=== PATIENT | female | born 1975 | race African-American/Black ===

== ENCOUNTER 2018-04-10 21:45 | Inpatient (IN) | payer MEDICARE, MEDICAID ==
[~2018-04-10] VITALS: Ht 167.6 cm; Wt 108.9 kg
[~2018-04-10 21:45] MED LIST: AMLO10TA80 PO; ATROPINE SULFATE 1MG/10ML SYR ONE; CALCIUM CHLORIDE 1GM/10ML SYR IV ONE; DEXTROSE 50% WATER 50ML SYRINGE IV ONE; EPINEPHRINE 0.1MG/ML (1:10,000) 10ML SYR ONE; ETOMIDATE 2MG/ML 10ML VIAL IV ONE; FLUT1DIS3 IH; HYDR-2510 PO; HYDR-4005 PO; IBUP-2030 PO; MONT10TA21 PO; SODIUM BICARBONATE 8.4% 1 MEQ/ML 50ML SYR IV ONE; SUCCINYLCHOLINE CHLORIDE 200MG/10ML IV ONE; THEO200T17 PO
[2018-04-10] MEDS ORDERED: METHYLPREDNISOLONE SOD SUCC 125 MG/2 ML VIAL IV STA (22:05)
[2018-04-10] MEDS ORDERED: ALBUTEROL (0.083%) 2.5MG/3ML NEB HHN STA (22:05)
[2018-04-10] MEDS ORDERED: MAGNESIUM 2 G PREMIX 50 ML IV STA (22:05)
[2018-04-10] MEDS ORDERED: IPRATROPIUM BROMIDE (0.02%) 0.5MG/2.5ML NEB HHN STA (22:05)
[2018-04-10] MEDS ORDERED: ACETAMINOPHEN 325MG TABLET PO ONE (22:15)
[2018-04-10 23:13] LABS: HEMOGLOBIN. 13.3 g/dL (12.0-16.0); MEAN CORPUSCULAR HEMOGLOBIN 26.2 pg (28.0-32.0); MEAN CORPUSCULAR VOLUME 84.5 fL (81.0-99.0); MEAN PLATELET VOLUME 9.5 fl (7.4-10.4); PLATELET 310 x1000/uL (130-400); RED BLOOD CELL COUNT 5.09 mill/uL (4.2-5.4); RED CELL DISTRIBUTION WIDTH 19.8 % (11.6-14.6)
[2018-04-10 23:16] LABS: CHLORIDE 106 mEq/L (98-107)
[2018-04-10 23:23] LABS: PLATELET ESTIMATE NORMAL
[2018-04-11] VITALS (21 sets, daily range): BP systolic 107–165; BP diastolic 70–111
[2018-04-11] MEDS ORDERED: METOCLOPRAMIDE HCL 10MG/2ML VIAL IV ONE
[2018-04-11 00:31] LABS: CLARITY URINE TURBID (CLEAR); COLOR URINE DARK YELLOW (YELLOW); KETONES URINE NEGATIVE (NEGATIVE); LEUKOCYTE ESTERASE URINE NEGATIVE (NEGATIVE); NITRITE URINE NEGATIVE (NEGATIVE); OCCULT BLOOD URINE TRACE (NEGATIVE); PH URINE 5.5 (4.5-8.0); PROTEIN URINE 2+ (NEGATIVE); SPECIFIC GRAVITY URINE 1.039 (1.005-1.030); UROBILINOGEN URINE 0.2 E.U./dL (0.2-1.0)
[2018-04-11 00:42] LABS: BG BASE EXCESS 2.2 mmol/L (-2.0-2.0); BG CARBOXYHEMOGLOBIN 1.6 % (0.5-1.5); BG DEOXYHEMOGLOBIN 3.1 % (0.0-5.0); BG FRACTION INSPIRED OXYGEN 44; BG HCO3 ACT 33.4 mmol/L (22.0-26.0); BG METHEMOGLOBIN 0.3 % (0.0-1.5); BG OXYGEN SATURATION 96.8 % (92.0-98.5); BG PCO2 88.3 mmHg (35.0-45.0); BG PH 7.195 (7.350-7.450); BG PO2 103.2 mmHg (75.0-100.0); BG SAMPLE SITE RIGHT RADIAL; BG TOTAL HEMOGLOBIN 14.5 g/dL (12.0-18.0); BG VENT MODE MASK - SIMPLE
[2018-04-11 02:04] LABS: BG BASE EXCESS -0.6 mmol/L (-2.0-2.0); BG CARBOXYHEMOGLOBIN 1.8 % (0.5-1.5); BG FRACTION INSPIRED OXYGEN 50; BG HCO3 ACT 28.8 mmol/L (22.0-26.0); BG METHEMOGLOBIN 0.4 % (0.0-1.5); BG OXYHEMOGLOBIN 95.8 % (94.0-97.0); BG PH 7.232 (7.350-7.450); BG PO2 125.6 mmHg (75.0-100.0); BG SAMPLE SITE LEFT RADIAL; BG TOTAL HEMOGLOBIN 14.6 g/dL (12.0-18.0); BG VENT MODE MASK - BIPAP; BG VENT RATE 22 set
[2018-04-11] MEDS ORDERED: FUROSEMIDE 40MG/4ML VIAL IVP ONE (02:15)
[2018-04-11] MEDS ORDERED: HYDRALAZINE 20MG/ML VIAL IV ONE (02:15)
[2018-04-11] MEDS ORDERED: MAGNESIUM 1 G PREMIX 100 ML IV ONE (02:45)
[2018-04-11] MEDS ORDERED: EPINEPHRINE 1:1000 1 MG/ML AMP IM ONE (04:30)
[2018-04-11] MEDS ORDERED: IPRATROPIUM/ALBUTEROL 0.5-3(2.5)MG/3ML NEB HHN ONE ×3 (04:45)
[2018-04-11] MEDS ORDERED: SUCCINYLCHOLINE CHLORIDE 200MG/10ML IV ONE (05:00)
[2018-04-11] MEDS ORDERED: ETOMIDATE 2MG/ML 10ML VIAL IV ONE (05:00)
[2018-04-11] MEDS ORDERED: MIDAZOLAM HCL 2 MG/2 ML VIAL IV ONE ×2 (05:00→06:00)
[2018-04-11] MEDS ORDERED: MIDAZOLAM HCL 50 MG in DEXTROSE 5% WATER 40 ML IV ONE (05:30)
[2018-04-11] MEDS ORDERED: SODIUM CHLORIDE 0.9% 1,000 ML IV ONE (05:30)
[2018-04-11] MEDS: PROPOFOL 10MG/ML 100ML 100 ML IV SCH ×2 (05:34→07:04)
[2018-04-11] MEDS ORDERED: MIDAZOLAM HCL 50 MG in DEXTROSE 5% WATER 40 ML IV PRN (05:45)
[2018-04-11] MEDS ORDERED: FENTANYL CITRATE/PF 50MCG/ML 2ML VIAL IV ONE ×2 (06:00→06:45)
[2018-04-11] MEDS ORDERED: MIDAZOLAM HCL 2 MG/2 ML VIAL ONE (06:08)
[2018-04-11] MEDS ORDERED: MIDAZOLAM HCL 2 MG/2 ML VIAL IV PRN (06:15)
[2018-04-11 06:26] LABS: BG BASE EXCESS 0.2 mmol/L (-2.0-2.0); BG DEOXYHEMOGLOBIN 1.9 % (0.0-5.0); BG FRACTION INSPIRED OXYGEN 60; BG METHEMOGLOBIN 0.2 % (0.0-1.5); BG OXYGEN SATURATION 98.1 % (92.0-98.5); BG OXYHEMOGLOBIN 95.9 % (94.0-97.0); BG PCO2 74.2 mmHg (35.0-45.0); BG PH 7.224 (7.350-7.450); BG PO2 125.9 mmHg (75.0-100.0); BG SAMPLE SITE RIGHT FEMORAL; BG TIDAL VOLUME(mL) 450 mL; BG TOTAL HEMOGLOBIN 14.2 g/dL (12.0-18.0); BG VENT MODE VENT - A/C; BG VENT RATE 18 set
[2018-04-11] MEDS ORDERED: PROPOFOL 200MG/20ML VIAL IV ONE (06:30)
[2018-04-11] MEDS ORDERED: KETAMINE HCL 50 MG/ML 10ML IV ONE (06:45)
[2018-04-11] MEDS: METHYLPREDNISOLONE SOD SUCC 40 MG/ML VIAL IV SCH ×3 (08:28→21:52)
[2018-04-11] MEDS: IPRATROPIUM/ALBUTEROL 0.5-3(2.5)MG/3ML NEB HHN SCH ×3 (09:03→20:30)
[2018-04-11] MEDS ORDERED: NA PHOS,M-B/NA PHOS,DI-BA ENEMA 118ML PR PRN (09:30)
[2018-04-11] MEDS ORDERED: ACETAMINOPHEN 650MG SUPP PR PRN (09:30)
[2018-04-11] MEDS ORDERED: LEVOFLOXACIN 500MG PREMIX 100 ML IV SCH (09:30)
[2018-04-11] MEDS ORDERED: MAGNESIUM/ALUMINUM HYDROXIDE/SIMETHICONE 30ML UDC PO PRN (09:30)
[2018-04-11] MEDS ORDERED: ENOXAPARIN 40MG/0.4ML SYR SUBCUT SCH (09:30)
[2018-04-11 09:43] LABS: BG BASE EXCESS 2.5 mmol/L (-2.0-2.0); BG CARBOXYHEMOGLOBIN 0.9 % (0.5-1.5); BG FRACTION INSPIRED OXYGEN 60; BG HCO3 ACT 29.3 mmol/L (22.0-26.0); BG METHEMOGLOBIN 0.1 % (0.0-1.5); BG PH 7.352 (7.350-7.450); BG PO2 104.9 mmHg (75.0-100.0); BG SAMPLE SITE RIGHT RADIAL; BG TIDAL VOLUME(mL) 500 mL; BG TOTAL HEMOGLOBIN 13.9 g/dL (12.0-18.0); BG VENT MODE VENT - A/C; BG VENT RATE 20 set
[2018-04-11] MEDS: DEXT 5%/0.45% NACL 1000ML 1,000 ML IV SCH ×2 (10:23→20:39)
[2018-04-11] MEDS: ENOXAPARIN 30MG/0.3ML SYR SUBCUT SCH ×2 (15:03→21:11)
[2018-04-11] MEDS: LEVOFLOXACIN 500MG PREMIX 100 ML IV SCH (15:04)
[2018-04-11] MEDS: CLONIDINE 0.1MG TABLET PO PRN (15:04)
[2018-04-11] MEDS ORDERED: HYDROCHLOROTHIAZIDE 25MG TABLET PO NR (16:00)
[2018-04-11] MEDS ORDERED: AMLODIPINE 10MG TABLET PO NR (16:00)
[2018-04-11] MEDS ORDERED: DEXTROSE 5% IV PRN (16:30)
[2018-04-11] MEDS ORDERED: MIDAZOLAM HCL IV PRN (16:30)
[2018-04-11] MEDS ORDERED: WATER IV PRN (16:30)
[2018-04-11] MEDS: LORAZEPAM 2MG/ML CPJ IV PRN (16:52)
[2018-04-11] MEDS: PROPOFOL 10MG/ML 100ML 100 ML IV PRN ×2 (16:59→21:05)
[2018-04-11] MEDS: MIDAZOLAM HCL 50 MG in DEXTROSE 5% WATER 40 ML IV PRN (17:33)
[2018-04-12] VITALS (48 sets, daily range): BP systolic 100–194; BP diastolic 60–120
[2018-04-12] MEDS: PROPOFOL 10MG/ML 100ML 100 ML IV PRN ×5 (00:40→23:29)
[2018-04-12] MEDS: LORAZEPAM 2MG/ML CPJ IV PRN ×2 (00:43→08:54)
[2018-04-12] MEDS: IPRATROPIUM/ALBUTEROL 0.5-3(2.5)MG/3ML NEB HHN SCH ×6 (00:48→20:12)
[2018-04-12] MEDS: MIDAZOLAM HCL 50 MG in DEXTROSE 5% WATER 40 ML IV PRN ×3 (01:30→18:44)
[2018-04-12] MEDS: DEXT 5%/0.45% NACL 1000ML 1,000 ML IV SCH ×2 (07:53→18:46)
[2018-04-12] MEDS: METHYLPREDNISOLONE SOD SUCC 40 MG/ML VIAL IV SCH ×2 (08:00→15:37)
[2018-04-12 08:52] LABS: BG BASE EXCESS 5.9 mmol/L (-2.0-2.0); BG CARBOXYHEMOGLOBIN 0.4 % (0.5-1.5); BG DEOXYHEMOGLOBIN 0.6 % (0.0-5.0); BG FRACTION INSPIRED OXYGEN 60; BG HCO3 ACT 31.9 mmol/L (22.0-26.0); BG METHEMOGLOBIN 0.1 % (0.0-1.5); BG OXYGEN SATURATION 99.4 % (92.0-98.5); BG OXYHEMOGLOBIN 98.9 % (94.0-97.0); BG PCO2 52.7 mmHg (35.0-45.0); BG SAMPLE SITE RIGHT RADIAL; BG TIDAL VOLUME(mL) 500 mL; BG TOTAL HEMOGLOBIN 12.6 g/dL (12.0-18.0); BG VENT MODE VENT - A/C; BG VENT RATE 20 set
[2018-04-12] MEDS: AMLODIPINE 10MG TABLET PO SCH (08:54)
[2018-04-12] MEDS: ENOXAPARIN 30MG/0.3ML SYR SUBCUT SCH (08:55)
[2018-04-12] MEDS: HYDROCHLOROTHIAZIDE 25MG TABLET PO SCH (08:55)
[2018-04-12] MEDS: ACETYLCYSTEINE 100MG/ML 10% VIAL 4ML INH SCH ×2 (09:03→15:58)
[2018-04-12] MEDS: PANTOPRAZOLE SODIUM 40 MG/VIAL IV SCH (09:23)
[2018-04-12] MEDS: LEVOFLOXACIN 500MG PREMIX 100 ML IV SCH (14:55)
[2018-04-12] MEDS: CLONIDINE 0.1MG TABLET PO PRN (19:06)
[2018-04-13] VITALS (48 sets, daily range): BP systolic 114–188; BP diastolic 74–116
[2018-04-13] MEDS: IPRATROPIUM/ALBUTEROL 0.5-3(2.5)MG/3ML NEB HHN SCH ×6 (00:06→20:06)
[2018-04-13] MEDS: ACETYLCYSTEINE 100MG/ML 10% VIAL 4ML INH SCH ×3 (00:06→16:38)
[2018-04-13] MEDS: METHYLPREDNISOLONE SOD SUCC 40 MG/ML VIAL IV SCH ×4 (01:02→21:23)
[2018-04-13] MEDS: ENOXAPARIN 30MG/0.3ML SYR SUBCUT SCH ×3 (01:07→21:23)
[2018-04-13] MEDS: DEXT 5%/0.45% NACL 1000ML 1,000 ML IV SCH ×3 (01:07→21:23)
[2018-04-13] MEDS: MIDAZOLAM HCL 50 MG in DEXTROSE 5% WATER 40 ML IV PRN ×3 (02:07→21:24)
[2018-04-13] MEDS: CLONIDINE 0.1MG TABLET PO PRN (02:12)
[2018-04-13] MEDS: PROPOFOL 10MG/ML 100ML 100 ML IV PRN ×3 (03:49→19:54)
[2018-04-13] MEDS ORDERED: PHENYLEPHRINE 80 MG in DEXT 5% WATER 492 ML IV PRN (06:03)
[2018-04-13] MEDS ORDERED: VASOPRESSIN 10 UNIT in SODIUM CHLORIDE 0.9% 99.5 ML IV PRN (06:03)
[2018-04-13] MEDS ORDERED: NOREPINEPHRINE 32 MG in DEXT 5% WATER 468 ML IV PRN (06:15)
[2018-04-13] MEDS: PANTOPRAZOLE SODIUM 40 MG/VIAL IV SCH (08:44)
[2018-04-13] MEDS: HYDROCHLOROTHIAZIDE 25MG TABLET PO SCH (08:45)
[2018-04-13] MEDS: AMLODIPINE 10MG TABLET PO SCH (08:45)
[2018-04-13 09:16] LABS: BG BASE EXCESS 7.6 mmol/L (-2.0-2.0); BG CARBOXYHEMOGLOBIN 0.7 % (0.5-1.5); BG DEOXYHEMOGLOBIN 2.7 % (0.0-5.0); BG FRACTION INSPIRED OXYGEN 40; BG HCO3 ACT 33.8 mmol/L (22.0-26.0); BG METHEMOGLOBIN 0.2 % (0.0-1.5); BG OXYGEN SATURATION 97.3 % (92.0-98.5); BG OXYHEMOGLOBIN 96.4 % (94.0-97.0); BG PCO2 54.1 mmHg (35.0-45.0); BG PH 7.413 (7.350-7.450); BG PO2 95.7 mmHg (75.0-100.0); BG PRESSURE SUPPORT 14; BG SAMPLE SITE RIGHT RADIAL; BG TIDAL VOLUME(mL) 500 mL; BG TOTAL HEMOGLOBIN 13.3 g/dL (12.0-18.0); BG VENT MODE VENT - SIMV; BG VENT RATE 14 set
[2018-04-13] MEDS: LORAZEPAM 2MG/ML CPJ IV PRN (09:51)
[2018-04-13 11:30] LABS: BG BASE EXCESS 9.3 mmol/L (-2.0-2.0); BG DEOXYHEMOGLOBIN 3.7 % (0.0-5.0); BG FRACTION INSPIRED OXYGEN 40; BG HCO3 ACT 36.4 mmol/L (22.0-26.0); BG METHEMOGLOBIN 0.3 % (0.0-1.5); BG OXYGEN SATURATION 96.3 % (92.0-98.5); BG PCO2 61.1 mmHg (35.0-45.0); BG PH 7.393 (7.350-7.450); BG PO2 81.8 mmHg (75.0-100.0); BG PRESSURE SUPPORT 10; BG SAMPLE SITE RIGHT RADIAL; BG TOTAL HEMOGLOBIN 13.3 g/dL (12.0-18.0); BG VENT MODE VENT - CPAP
[2018-04-13 13:44] LABS: T4 FREE 0.86 ng/dL (0.76-1.46)
[2018-04-13] MEDS: LEVOFLOXACIN 500MG PREMIX 100 ML IV SCH (16:26)
[2018-04-13 17:09] LABS: BASOPHILS % 0.4 % (0.0-2.0); EOSINOPHILS % 0.1 % (0.0-5.0); HEMATOCRIT. 39.9 % (36.0-48.0); HEMOGLOBIN. 12.6 g/dL (12.0-16.0); LYMPHOCYTES % 10.1 % (20.0-50.0); MEAN CORPUSCULAR HEMOGLOBIN 26.5 pg (28.0-32.0); MEAN CORPUSCULAR VOLUME 83.8 fL (81.0-99.0); MEAN PLATELET VOLUME 9.6 fl (7.4-10.4); MONOCYTES % 10.7 % (2.0-8.0); NEUTROPHILS % 78.7 % (40.0-76.0); PLATELET 259 x1000/uL (130-400); RED BLOOD CELL COUNT 4.76 mill/uL (4.2-5.4); RED CELL DISTRIBUTION WIDTH 19.3 % (11.6-14.6)
[2018-04-13 17:25] LABS: CHLORIDE 99 mEq/L (98-107)
[2018-04-13] MEDS ORDERED: KCL 20MEQ/100ML PREMIX 100 ML IV STA (22:04)
[2018-04-14] VITALS (44 sets, daily range): BP systolic 101–147; BP diastolic 37–104
[2018-04-14] MEDS: ACETYLCYSTEINE 100MG/ML 10% VIAL 4ML INH SCH ×3 (00:03→16:52)
[2018-04-14] MEDS: IPRATROPIUM/ALBUTEROL 0.5-3(2.5)MG/3ML NEB HHN SCH ×6 (00:03→20:22)
[2018-04-14] MEDS: DEXT 5%/0.45% NACL KCL 20MEQ/L 1,000 ML IV SCH ×2 (00:13→11:35)
[2018-04-14] MEDS ORDERED: KCL 20MEQ/100ML PREMIX 100 ML IV SCH (01:00)
[2018-04-14] MEDS: PROPOFOL 10MG/ML 100ML 100 ML IV PRN ×4 (04:46→21:22)
[2018-04-14 05:33] LABS: BASOPHILS % 0.3 % (0.0-2.0); HEMOGLOBIN. 14.1 g/dL (12.0-16.0); LYMPHOCYTES % 8.1 % (20.0-50.0); MEAN CORPUSCULAR HEMOGLOBIN 26.4 pg (28.0-32.0); MEAN CORPUSCULAR VOLUME 84.5 fL (81.0-99.0); MEAN PLATELET VOLUME 9.9 fl (7.4-10.4); MONOCYTES % 5.6 % (2.0-8.0); PLATELET 220 x1000/uL (130-400); RED BLOOD CELL COUNT 5.33 mill/uL (4.2-5.4); RED CELL DISTRIBUTION WIDTH 19.7 % (11.6-14.6)
[2018-04-14 05:53] LABS: CHLORIDE 103 mEq/L (98-107)
[2018-04-14] MEDS: METHYLPREDNISOLONE SOD SUCC 40 MG/ML VIAL IV SCH ×3 (06:25→21:22)
[2018-04-14 08:06] LABS: BG BASE EXCESS 2.8 mmol/L (-2.0-2.0); BG CARBOXYHEMOGLOBIN 1.2 % (0.5-1.5); BG DEOXYHEMOGLOBIN 3.5 % (0.0-5.0); BG FRACTION INSPIRED OXYGEN 40; BG HCO3 ACT 28.1 mmol/L (22.0-26.0); BG METHEMOGLOBIN 0.1 % (0.0-1.5); BG OXYGEN SATURATION 96.5 % (92.0-98.5); BG OXYHEMOGLOBIN 95.2 % (94.0-97.0); BG PCO2 45.6 mmHg (35.0-45.0); BG PH 7.407 (7.350-7.450); BG SAMPLE SITE RIGHT RADIAL; BG TIDAL VOLUME(mL) 500 mL; BG TOTAL HEMOGLOBIN 13.9 g/dL (12.0-18.0); BG VENT MODE VENT - A/C; BG VENT RATE 16 set
[2018-04-14] MEDS: PANTOPRAZOLE SODIUM 40 MG/VIAL IV SCH (09:39)
[2018-04-14] MEDS: AMLODIPINE 10MG TABLET PO SCH (09:39)
[2018-04-14] MEDS: HYDROCHLOROTHIAZIDE 25MG TABLET PO SCH (09:39)
[2018-04-14] MEDS: ENOXAPARIN 30MG/0.3ML SYR SUBCUT SCH ×2 (09:40→21:22)
[2018-04-14] MEDS: MIDAZOLAM HCL 50 MG in DEXTROSE 5% WATER 40 ML IV PRN ×2 (10:17→21:28)
[2018-04-14 12:19] LABS: BG BASE EXCESS 6.4 mmol/L (-2.0-2.0); BG CARBOXYHEMOGLOBIN 0.7 % (0.5-1.5); BG DEOXYHEMOGLOBIN 3.2 % (0.0-5.0); BG HCO3 ACT 32.5 mmol/L (22.0-26.0); BG METHEMOGLOBIN 0.2 % (0.0-1.5); BG OXYGEN SATURATION 96.8 % (92.0-98.5); BG OXYHEMOGLOBIN 95.9 % (94.0-97.0); BG PH 7.406 (7.350-7.450); BG PO2 90.9 mmHg (75.0-100.0); BG SAMPLE SITE RIGHT RADIAL; BG TIDAL VOLUME(mL) 500 mL; BG TOTAL HEMOGLOBIN 13.5 g/dL (12.0-18.0); BG VENT MODE VENT - SIMV; BG VENT RATE 10 set
[2018-04-14 14:50] LABS: BG BASE EXCESS 6.5 mmol/L (-2.0-2.0); BG CARBOXYHEMOGLOBIN 0.9 % (0.5-1.5); BG DEOXYHEMOGLOBIN 6.5 % (0.0-5.0); BG FRACTION INSPIRED OXYGEN 40; BG HCO3 ACT 33.5 mmol/L (22.0-26.0); BG METHEMOGLOBIN 0.1 % (0.0-1.5); BG OXYGEN SATURATION 93.4 % (92.0-98.5); BG OXYHEMOGLOBIN 92.5 % (94.0-97.0); BG PH 7.379 (7.350-7.450); BG PO2 70.3 mmHg (75.0-100.0); BG PRESSURE SUPPORT 10; BG SAMPLE SITE RIGHT RADIAL; BG TOTAL HEMOGLOBIN 14.3 g/dL (12.0-18.0); BG VENT MODE VENT - CPAP
[2018-04-14] MEDS: THIAMINE HCL 100MG TABLET PO SCH (16:30)
[2018-04-14] MEDS: LEVOFLOXACIN 500MG PREMIX 100 ML IV SCH (16:30)
[2018-04-14] MEDS: MVI, ADULT NO.1 10 ML in DEXT 5%/0.45% NACL KCL 20MEQ/L 1,000 ML IV SCH ×2 (17:37)
[2018-04-15] VITALS (44 sets, daily range): BP systolic 96–161; BP diastolic 47–115
[2018-04-15] MEDS: IPRATROPIUM/ALBUTEROL 0.5-3(2.5)MG/3ML NEB HHN SCH ×6 (00:26→20:20)
[2018-04-15] MEDS: ACETYLCYSTEINE 100MG/ML 10% VIAL 4ML INH SCH ×3 (00:27→16:07)
[2018-04-15] MEDS: PROPOFOL 10MG/ML 100ML 100 ML IV PRN (03:45)
[2018-04-15] MEDS: METHYLPREDNISOLONE SOD SUCC 40 MG/ML VIAL IV SCH ×3 (05:53→21:48)
[2018-04-15] MEDS: DEXT 5%/0.45% NACL KCL 20MEQ/L 1,000 ML IV SCH (05:54)
[2018-04-15] MEDS: PANTOPRAZOLE SODIUM 40 MG/VIAL IV SCH (10:01)
[2018-04-15] MEDS: AMLODIPINE 10MG TABLET PO SCH (10:02)
[2018-04-15] MEDS: THIAMINE HCL 100MG TABLET PO SCH (10:02)
[2018-04-15] MEDS: ENOXAPARIN 30MG/0.3ML SYR SUBCUT SCH ×2 (10:02→21:49)
[2018-04-15] MEDS: HYDROCHLOROTHIAZIDE 25MG TABLET PO SCH (10:02)
[2018-04-15 10:11] LABS: BG BASE EXCESS 6.5 mmol/L (-2.0-2.0); BG CARBOXYHEMOGLOBIN 0.7 % (0.5-1.5); BG DEOXYHEMOGLOBIN 8.9 % (0.0-5.0); BG FRACTION INSPIRED OXYGEN 45; BG HCO3 ACT 32.8 mmol/L (22.0-26.0); BG METHEMOGLOBIN 0.3 % (0.0-1.5); BG OXYHEMOGLOBIN 90.1 % (94.0-97.0); BG PCO2 53.7 mmHg (35.0-45.0); BG PH 7.404 (7.350-7.450); BG PO2 61.7 mmHg (75.0-100.0); BG PRESSURE SUPPORT 8; BG SAMPLE SITE RIGHT RADIAL; BG TOTAL HEMOGLOBIN 14.4 g/dL (12.0-18.0); BG VENT MODE VENT - CPAP
[2018-04-15] MEDS ORDERED: RACEPINEPHRINE 2.25% 0.5ML NEB VIAL HHN PRN (11:00)
[2018-04-15] MEDS ORDERED: RACEPINEPHRINE 2.25% 0.5ML NEB VIAL HHN NR (11:00)
[2018-04-15 13:02] LABS: BG BILEVEL POS AIRWAY PRESSURE 15/5; BG CARBOXYHEMOGLOBIN 1.1 % (0.5-1.5); BG DEOXYHEMOGLOBIN 3.6 % (0.0-5.0); BG FRACTION INSPIRED OXYGEN 45; BG HCO3 ACT 30.9 mmol/L (22.0-26.0); BG METHEMOGLOBIN 0.2 % (0.0-1.5); BG OXYGEN SATURATION 96.4 % (92.0-98.5); BG OXYHEMOGLOBIN 95.1 % (94.0-97.0); BG PCO2 45.4 mmHg (35.0-45.0); BG PH 7.451 (7.350-7.450); BG PO2 85.1 mmHg (75.0-100.0); BG SAMPLE SITE RIGHT RADIAL; BG TOTAL HEMOGLOBIN 14.2 g/dL (12.0-18.0); BG VENT MODE MASK - BIPAP; BG VENT RATE 14 set
[2018-04-15] MEDS: LEVOFLOXACIN 500MG PREMIX 100 ML IV SCH (14:29)
[2018-04-15] MEDS: MVI, ADULT NO.1 10 ML in DEXT 5%/0.45% NACL KCL 20MEQ/L 1,000 ML IV SCH ×2 (16:00)
[2018-04-15] MEDS: POTASSIUM CHLORIDE INJ 20 MEQ, MVI, ADULT NO.1 10 ML in DEXT 5%/0.45% NACL 1000ML 1,000 ML IV SCH ×6 (17:00→17:31)
[2018-04-16] VITALS (21 sets, daily range): BP systolic 139–194; BP diastolic 88–119
[2018-04-16] MEDS: ACETYLCYSTEINE 100MG/ML 10% VIAL 4ML INH SCH ×4 (00:26→16:49)
[2018-04-16] MEDS: IPRATROPIUM/ALBUTEROL 0.5-3(2.5)MG/3ML NEB HHN SCH ×6 (00:26→21:40)
[2018-04-16] MEDS: CLONIDINE 0.1MG TABLET PO PRN (04:36)
[2018-04-16] MEDS: METHYLPREDNISOLONE SOD SUCC 40 MG/ML VIAL IV SCH ×3 (06:20→21:14)
[2018-04-16] MEDS: POTASSIUM CHLORIDE INJ 20 MEQ, MVI, ADULT NO.1 10 ML in DEXT 5%/0.45% NACL 1000ML 1,000 ML IV SCH ×3 (06:21)
[2018-04-16] MEDS: PANTOPRAZOLE SODIUM 40 MG/VIAL IV SCH (08:31)
[2018-04-16] MEDS: ENOXAPARIN 30MG/0.3ML SYR SUBCUT SCH ×2 (08:32→21:15)
[2018-04-16] MEDS: THIAMINE HCL 100MG TABLET PO SCH (08:34)
[2018-04-16] MEDS: AMLODIPINE 10MG TABLET PO SCH (08:34)
[2018-04-16] MEDS: HYDROCHLOROTHIAZIDE 25MG TABLET PO SCH (10:07)
[2018-04-16] MEDS: DEXT 5%/0.45% NACL KCL 20MEQ/L 1,000 ML IV SCH ×2 (10:07→21:15)
[2018-04-16 10:12] LABS: HEMOGLOBIN 12.5 g/dL (12.0-16.0); MEAN CORPUSCULAR HEMOGLOBIN 25.6 pg (28.0-32.0); MEAN CORPUSCULAR VOLUME 83.5 fL (81.0-99.0); PLATELET 259 x1000/uL (130-400); RED BLOOD CELL COUNT 4.91 mill/uL (4.2-5.4); RED CELL DISTRIBUTION WIDTH 19.2 % (11.6-14.6)
[2018-04-16 10:15] LABS: CHLORIDE 103 mEq/L (98-107)
[2018-04-16 10:21] LABS: PHOSPHORUS 3.3 mg/dL (2.5-4.9)
[2018-04-16] MEDS ORDERED: DEXTROSE 50% WATER 50ML SYRINGE IV PRN (13:45)
[2018-04-16] MEDS: LEVOFLOXACIN 500MG PREMIX 100 ML IV SCH (14:00)
[2018-04-16] MEDS: BLOOD SUGAR DIAGNOSTIC STRIP TEST SCH ×2 (17:56→20:35)
[2018-04-16] MEDS: INSULIN LISPRO 100 UNITS/ML SUBCUT SCH ×2 (17:58→21:14)
[2018-04-16] MEDS ORDERED: MVI, ADULT NO.1 10 ML, POTASSIUM CHLORIDE INJ 20 MEQ in DEXT 5%/0.45% NACL 1000ML 1,000 ML IV SCH ×3 (21:52)
[2018-04-16] MEDS: MVI, ADULT NO.1 10 ML in DEXT 5%/0.45% NACL KCL 20MEQ/L 1,000 ML IV SCH ×2 (22:20)
[2018-04-16] MEDS: TEMAZEPAM 15MG CAPSULE PO PRN (22:20)
[2018-04-17 00:14] VITALS: BP 115/71
[2018-04-17] MEDS: IPRATROPIUM/ALBUTEROL 0.5-3(2.5)MG/3ML NEB HHN SCH ×5 (01:10→20:19)
[2018-04-17 04:00] VITALS: BP 153/100
[2018-04-17] MEDS: METHYLPREDNISOLONE SOD SUCC 40 MG/ML VIAL IV SCH ×3 (05:31→21:51)
[2018-04-17] MEDS: CLONIDINE 0.1MG TABLET PO PRN (06:28)
[2018-04-17] MEDS: BLOOD SUGAR DIAGNOSTIC STRIP TEST SCH ×4 (06:44→20:41)
[2018-04-17 08:00] VITALS: BP 159/102
[2018-04-17] MEDS: ACETYLCYSTEINE 100MG/ML 10% VIAL 4ML INH SCH ×2 (08:58→20:19)
[2018-04-17] MEDS: DEXT 5%/0.45% NACL KCL 20MEQ/L 1,000 ML IV SCH (09:40)
[2018-04-17] MEDS: PANTOPRAZOLE SODIUM 40 MG/VIAL IV SCH (09:59)
[2018-04-17] MEDS: HYDROCHLOROTHIAZIDE 25MG TABLET PO SCH (09:59)
[2018-04-17] MEDS: THIAMINE HCL 100MG TABLET PO SCH (09:59)
[2018-04-17] MEDS: AMLODIPINE 10MG TABLET PO SCH (10:00)
[2018-04-17] MEDS: ENOXAPARIN 30MG/0.3ML SYR SUBCUT SCH ×2 (10:01→20:41)
[2018-04-17] MEDS: INSULIN LISPRO 100 UNITS/ML SUBCUT SCH ×4 (10:02→21:53)
[2018-04-17 10:03] LABS: BG BASE EXCESS 0.8 mmol/L (-2.0-2.0); BG CARBOXYHEMOGLOBIN 1.2 % (0.5-1.5); BG DEOXYHEMOGLOBIN 7.5 % (0.0-5.0); BG FRACTION INSPIRED OXYGEN 28; BG HCO3 ACT 24.6 mmol/L (22.0-26.0); BG METHEMOGLOBIN 0.2 % (0.0-1.5); BG OXYGEN SATURATION 92.4 % (92.0-98.5); BG OXYHEMOGLOBIN 91.1 % (94.0-97.0); BG PCO2 36.9 mmHg (35.0-45.0); BG PH 7.442 (7.350-7.450); BG PO2 65.6 mmHg (75.0-100.0); BG SAMPLE SITE RIGHT RADIAL; BG TOTAL HEMOGLOBIN 14.8 g/dL (12.0-18.0); BG VENT MODE NASAL CANNULA
[2018-04-17] MEDS ORDERED: TRIA1TAB92 PO (10:19)
[2018-04-17 12:00] VITALS: BP 128/83
[2018-04-17] MEDS: MVI, ADULT NO.1 10 ML, POTASSIUM CHLORIDE INJ 20 MEQ in DEXT 5%/0.45% NACL 1000ML 1,000 ML IV SCH ×3 (14:58)
[2018-04-17] MEDS: LEVOFLOXACIN 500MG PREMIX 100 ML IV SCH (15:10)
[2018-04-17 16:00] VITALS: BP 121/78
[2018-04-17 20:00] VITALS: BP 129/80
[2018-04-17] MEDS: TEMAZEPAM 15MG CAPSULE PO PRN (21:51)
[2018-04-18] VITALS (7 sets, daily range): BP systolic 119–134; BP diastolic 73–88
[2018-04-18] MEDS: IPRATROPIUM/ALBUTEROL 0.5-3(2.5)MG/3ML NEB HHN SCH ×6 (00:36→15:23)
[2018-04-18] MEDS: METHYLPREDNISOLONE SOD SUCC 40 MG/ML VIAL IV SCH (05:24)
[2018-04-18] MEDS: BLOOD SUGAR DIAGNOSTIC STRIP TEST SCH ×4 (06:40→21:00)
[2018-04-18] MEDS: FAMOTIDINE 20MG/2ML VIAL IV SCH ×2 (09:06→22:24)
[2018-04-18] MEDS: ENOXAPARIN 30MG/0.3ML SYR SUBCUT SCH ×2 (09:06→22:24)
[2018-04-18] MEDS: AMLODIPINE 10MG TABLET PO SCH (09:07)
[2018-04-18] MEDS: INSULIN LISPRO 100 UNITS/ML SUBCUT SCH ×3 (09:07→22:33)
[2018-04-18] MEDS: THIAMINE HCL 100MG TABLET PO SCH (09:08)
[2018-04-18] MEDS: HYDROCHLOROTHIAZIDE 25MG TABLET PO SCH (09:12)
[2018-04-18] MEDS: DILTIAZEM HCL 60MG TABLET PO SCH ×2 (12:17→20:00)
[2018-04-18] MEDS: DEXT 5%/0.45% NACL KCL 20MEQ/L 1,000 ML IV SCH ×2 (13:55→13:56)
[2018-04-18] MEDS: LEVOFLOXACIN 500MG PREMIX 100 ML IV SCH (14:00)
[2018-04-18] MEDS: MVI, ADULT NO.1 10 ML, POTASSIUM CHLORIDE INJ 20 MEQ in DEXT 5%/0.45% NACL 1000ML 1,000 ML IV SCH ×3 (16:21)
[2018-04-18] MEDS ORDERED: DILTIAZEM HCL 5MG/ML 5ML VIAL IV NR (17:47)
[2018-04-18] MEDS ORDERED: DILTIAZEM HCL 5MG/ML 5ML VIAL IV PRN (19:15)
[2018-04-18] MEDS ORDERED: DILTIAZEM HCL 125 MG in DEXT 5% WATER 100 ML IV PRN (20:30)
[2018-04-18] MEDS ORDERED: METHYLPREDNISOLONE SOD SUCC 40 MG/ML VIAL IV SCH (21:00)
[2018-04-18] MEDS: TEMAZEPAM 15MG CAPSULE PO PRN (22:25)
[2018-04-19] VITALS (10 sets, daily range): BP systolic 109–140; BP diastolic 46–99
[2018-04-19] MEDS: DEXT 5%/0.45% NACL KCL 20MEQ/L 1,000 ML IV SCH ×3 (01:40→16:42)
[2018-04-19] MEDS: DILTIAZEM HCL 60MG TABLET PO SCH ×2 (01:43→12:00)
[2018-04-19 06:39] LABS: HEMATOCRIT. 42.6 % (36.0-48.0); MEAN CORPUSCULAR HEMOGLOBIN 25.6 pg (28.0-32.0); MEAN CORPUSCULAR VOLUME 83.6 fL (81.0-99.0); MEAN PLATELET VOLUME 9.8 fl (7.4-10.4); PLATELET 283 x1000/uL (130-400); RED CELL DISTRIBUTION WIDTH 19.2 % (11.6-14.6)
[2018-04-19 07:08] LABS: CHLORIDE 106 mEq/L (98-107)
[2018-04-19] MEDS: BLOOD SUGAR DIAGNOSTIC STRIP TEST SCH ×4 (07:48→21:00)
[2018-04-19] MEDS: PREDNISONE 20MG TABLET PO SCH (09:04)
[2018-04-19] MEDS: FAMOTIDINE 20MG/2ML VIAL IV SCH ×2 (09:04→22:06)
[2018-04-19] MEDS: ENOXAPARIN 30MG/0.3ML SYR SUBCUT SCH ×2 (09:05→22:09)
[2018-04-19] MEDS: ASPIRIN 81MG EC TABLET PO SCH (09:05)
[2018-04-19] MEDS: HYDROCHLOROTHIAZIDE 25MG TABLET PO SCH (09:05)
[2018-04-19] MEDS: THIAMINE HCL 100MG TABLET PO SCH (09:05)
[2018-04-19] MEDS: INSULIN LISPRO 100 UNITS/ML SUBCUT SCH ×4 (09:06→21:00)
[2018-04-19 10:18] LABS: BG BASE EXCESS 1.6 mmol/L (-2.0-2.0); BG CARBOXYHEMOGLOBIN 0.8 % (0.5-1.5); BG DEOXYHEMOGLOBIN 5.9 % (0.0-5.0); BG FRACTION INSPIRED OXYGEN 21; BG HCO3 ACT 25.7 mmol/L (22.0-26.0); BG METHEMOGLOBIN 0.3 % (0.0-1.5); BG PH 7.437 (7.350-7.450); BG PO2 71.3 mmHg (75.0-100.0); BG SAMPLE SITE RIGHT RADIAL; BG TOTAL HEMOGLOBIN 13.6 g/dL (12.0-18.0); BG VENT MODE ROOM AIR
[2018-04-19 12:50] LABS: PLATELET ESTIMATE NORMAL
[2018-04-19] MEDS ORDERED: DILTIAZEM HCL 125 MG in DEXT 5% WATER 100 ML IV SCH (14:30)
[2018-04-19] MEDS ORDERED: LIDOCAINE HCL/PF 1% 2ML VIAL ONE (14:44)
[2018-04-19] MEDS: DILTIAZEM HCL 30MG TABLET PO SCH ×2 (16:41→22:06)
[2018-04-19] MEDS: MVI, ADULT NO.1 10 ML, POTASSIUM CHLORIDE INJ 20 MEQ in DEXT 5%/0.45% NACL 1000ML 1,000 ML IV SCH ×6 (16:43→17:24)
[2018-04-19] MEDS: LACTULOSE 20G/30ML UDC PO SCH ×2 (17:23→22:06)
[2018-04-19] MEDS: DOCUSATE SODIUM 100MG CAPSULE PO SCH (17:23)
[2018-04-19] MEDS: POLYETHYLENE GLYCOL 3350 (17GM) 1 DOSE PACK PO SCH (22:06)
[2018-04-19] MEDS: SOTALOL HCL 80MG TABLET PO SCH (22:08)
[2018-04-20] VITALS (12 sets, daily range): BP systolic 107–143; BP diastolic 60–97
[2018-04-20] MEDS: BLOOD SUGAR DIAGNOSTIC STRIP TEST SCH ×4 (07:50→21:33)
[2018-04-20] MEDS: INSULIN LISPRO 100 UNITS/ML SUBCUT SCH ×4 (07:50→21:34)
[2018-04-20 08:33] LABS: HEMATOCRIT. 40.8 % (36.0-48.0); HEMOGLOBIN. 12.7 g/dL (12.0-16.0); MEAN CORPUSCULAR HEMOGLOBIN 25.7 pg (28.0-32.0); MEAN CORPUSCULAR VOLUME 82.6 fL (81.0-99.0); MEAN PLATELET VOLUME 9.7 fl (7.4-10.4); PLATELET 309 x1000/uL (130-400); RED BLOOD CELL COUNT 4.94 mill/uL (4.2-5.4); RED CELL DISTRIBUTION WIDTH 19.5 % (11.6-14.6)
[2018-04-20 08:52] LABS: CHLORIDE 105 mEq/L (98-107)
[2018-04-20] MEDS: PREDNISONE 20MG TABLET PO SCH (09:02)
[2018-04-20] MEDS: SOTALOL HCL 80MG TABLET PO SCH (09:03)
[2018-04-20] MEDS: HYDROCHLOROTHIAZIDE 25MG TABLET PO SCH (09:03)
[2018-04-20] MEDS: THIAMINE HCL 100MG TABLET PO SCH (09:03)
[2018-04-20] MEDS: DOCUSATE SODIUM 100MG CAPSULE PO SCH ×2 (09:03→17:49)
[2018-04-20] MEDS: FAMOTIDINE 20MG/2ML VIAL IV SCH ×2 (09:03→21:33)
[2018-04-20] MEDS: ASPIRIN 81MG EC TABLET PO SCH (09:03)
[2018-04-20] MEDS: ENOXAPARIN 30MG/0.3ML SYR SUBCUT SCH (09:04)
[2018-04-20] MEDS: LACTULOSE 20G/30ML UDC PO SCH (09:04)
[2018-04-20] MEDS: DILTIAZEM HCL 30MG TABLET PO SCH (13:15)
[2018-04-20] MEDS: MVI, ADULT NO.1 10 ML, POTASSIUM CHLORIDE INJ 20 MEQ in DEXT 5%/0.45% NACL 1000ML 1,000 ML IV SCH ×3 (16:28)
[2018-04-20] MEDS: DEXT 5%/0.45% NACL KCL 20MEQ/L 1,000 ML IV SCH (17:49)
[2018-04-20] MEDS ORDERED: DIGOXIN 250MCG TABLET PO SCH (18:00)
[2018-04-20 20:24] LABS: PLATELET ESTIMATE NORMAL
[2018-04-20] MEDS: POLYETHYLENE GLYCOL 3350 (17GM) 1 DOSE PACK PO SCH (21:33)
[2018-04-20] MEDS: ENOXAPARIN 40MG/0.4ML SYR SUBCUT SCH (21:33)
[2018-04-20] MEDS: DILTIAZEM HCL 60MG TABLET PO SCH (21:33)
[2018-04-21] VITALS (8 sets, daily range): BP systolic 115–146; BP diastolic 61–95
[2018-04-21] MEDS: DEXT 5%/0.45% NACL KCL 20MEQ/L 1,000 ML IV SCH (06:04)
[2018-04-21] MEDS: DILTIAZEM HCL 60MG TABLET PO SCH ×2 (06:05→13:44)
[2018-04-21 06:25] LABS: CHLORIDE 106 mEq/L (98-107)
[2018-04-21] MEDS: BLOOD SUGAR DIAGNOSTIC STRIP TEST SCH ×2 (07:30→13:16)
[2018-04-21] MEDS: IPRATROPIUM/ALBUTEROL 0.5-3(2.5)MG/3ML NEB HHN SCH ×3 (07:49→16:20)
[2018-04-21] MEDS: INSULIN LISPRO 100 UNITS/ML SUBCUT SCH ×2 (08:00→13:43)
[2018-04-21] MEDS: HYDROCHLOROTHIAZIDE 25MG TABLET PO SCH (08:55)
[2018-04-21] MEDS: PREDNISONE 20MG TABLET PO SCH (08:55)
[2018-04-21] MEDS: DOCUSATE SODIUM 100MG CAPSULE PO SCH (08:55)
[2018-04-21] MEDS: THIAMINE HCL 100MG TABLET PO SCH (08:55)
[2018-04-21] MEDS: ASPIRIN 81MG EC TABLET PO SCH (08:55)
[2018-04-21] MEDS: FAMOTIDINE 20MG/2ML VIAL IV SCH (08:56)
[2018-04-21] MEDS: ENOXAPARIN 40MG/0.4ML SYR SUBCUT SCH (08:57)
[2018-04-21 09:06] LABS: HEMATOCRIT. 44.1 % (36.0-48.0); HEMOGLOBIN. 13.6 g/dL (12.0-16.0); MEAN CORPUSCULAR HEMOGLOBIN 25.8 pg (28.0-32.0); MEAN CORPUSCULAR VOLUME 83.9 fL (81.0-99.0); MEAN PLATELET VOLUME 9.8 fl (7.4-10.4); PLATELET 245 x1000/uL (130-400); RED BLOOD CELL COUNT 5.25 mill/uL (4.2-5.4); RED CELL DISTRIBUTION WIDTH 19.3 % (11.6-14.6)
[2018-04-21 13:49] LABS: PLATELET ESTIMATE NORMAL
[2018-04-21] MEDS ORDERED: ENOXAPARIN 30MG/0.3ML SYR SUBCUT SCH (21:00)
== END 2018-04-21 16:56 | disposition home health service (06) | DRG 207 ==
LOC: ER 21:45 → EDBEDREQ 04-11 00:16 → EDBEDREQTM 04-11 00:16 → EDBEDREQDT 04-11 00:16 → ENRESERV 04-11 03:41 → CANRESERV 04-11 03:41 → CVICU 04-11 04:23 → EDBEDREQ 04-11 04:28 → EDBEDREQSVC 04-11 04:28 → EDBEDREQTM 04-11 04:28 → ENRESERV 04-11 11:31 → 7WST 04-16 18:51 → 5EST 04-18 18:02
PROVIDERS: ADMIT Specialist; ATTEND Specialist
PROC: 5A09357 Assistance with Respiratory Ventilation, Less than 24 Consecutive Hours, Continuous Positive Airway Pressure (ICD-10-PCS; 2018-04-10)
PROC: 5A1955Z Respiratory Ventilation, Greater than 96 Consecutive Hours (ICD-10-PCS; principal; 2018-04-11)
PROC: 0BH18EZ Insertion of Endotracheal Airway into Trachea, Via Natural or Artificial Opening Endoscopic (ICD-10-PCS; 2018-04-11)
PROC: 5A09357 Assistance with Respiratory Ventilation, Less than 24 Consecutive Hours, Continuous Positive Airway Pressure (ICD-10-PCS; 2018-04-11)
PROC: 02HV33Z Insertion of Infusion Device into Superior Vena Cava, Percutaneous Approach (ICD-10-PCS; 2018-04-13)
PROC: B548ZZA Ultrasonography of Superior Vena Cava, Guidance (ICD-10-PCS; 2018-04-13)
PROC: 5A09357 Assistance with Respiratory Ventilation, Less than 24 Consecutive Hours, Continuous Positive Airway Pressure (ICD-10-PCS; 2018-04-15)
PROC: 5A09357 Assistance with Respiratory Ventilation, Less than 24 Consecutive Hours, Continuous Positive Airway Pressure (ICD-10-PCS; 2018-04-17)
DX: J96.00 Acute respiratory failure, unspecified whether with hypoxia or hypercapnia (principal); J45.42 Moderate persistent asthma with status asthmaticus; E87.2 Acidosis; E44.0 Moderate protein-calorie malnutrition; I47.1 Supraventricular tachycardia; I48.92 Unspecified atrial flutter; J44.1 Chronic obstructive pulmonary disease with (acute) exacerbation; J45.41 Moderate persistent asthma with (acute) exacerbation; Z99.11 Dependence on respirator [ventilator] status; E66.9 Obesity, unspecified; F12.90 Cannabis use, unspecified, uncomplicated; D72.829 Elevated white blood cell count, unspecified; R26.9 Unspecified abnormalities of gait and mobility; R73.9 Hyperglycemia, unspecified; I11.9 Hypertensive heart disease without heart failure; Z82.49 Family history of ischemic heart disease and other diseases of the circulatory system; Z82.5 Family history of asthma and other chronic lower respiratory diseases; Z83.3 Family history of diabetes mellitus; Z87.891 Personal history of nicotine dependence; Z98.84 Bariatric surgery status; Z68.38 Body mass index [BMI] 38.0-38.9, adult; Z88.0 Allergy status to penicillin; Z79.1 Long term (current) use of non-steroidal anti-inflammatories (NSAID); Z79.899 Other long term (current) drug therapy
CPT/HCPCS: 36415; 36569; 36600; 71045; 76937; 80048; 80076; 80162; 82375; 82805; 82962; 83735; 83880; 84100; 84439; 84443; 84478; 84484; 85027; 87070; 87804; 93005; 93306; 93970; 94002; 94003; 94640; 94644; 94660; 96365; 96375; 97116; 97162; 97164; 97165; 97535; 99291; 99292; C1725; C1893; C9113; J0330; J0360; J0461; J1650; J1815; J1940; J1956; J2060; J2250; J2704; J2765; J2920; J2930; J3010; J3475; J3480; J3490; J7030; J7040; J7060; J7512; J7608; J7611; J7620